=== PATIENT | male | born 1990 | race Caucasian/White ===

== ENCOUNTER 2023-10-01 08:52 | Day surgery (SDC) | payer BC ==
[~2023-10-01] VITALS: Ht 172.7 cm; Wt 84.1 kg
[~2023-10-01 08:52] MED LIST: AZEL205.5 NS; CETI5SOL3 PO; HYDR-3363 PO; LEXA5TAB13 PO
[2023-10-01] MEDS ORDERED: propofoL 200 MG/20 ML VIAL As Ordered ONE (10:20)
[2023-10-01] MEDS ORDERED: propofoL 500 MG/50 ML VIAL As Ordered ONE (10:25)
[2023-10-01] MEDS ORDERED: MIDAZOLAM INJ 2MG/2ML VIAL As Ordered ONE (10:30)
[2023-10-01 10:41] VITALS: TEMP 97.4
[2023-10-01 11:02] VITALS: BP 112/73; O2SAT 98
== END 2023-10-01 11:11 | disposition home or self-care (01) ==
LOC: M OPP 08:52
PROVIDERS: ATTEND Internal Medicine Gastroenterology
DX: K64.8 Other hemorrhoids (principal); K63.5 Polyp of colon; R10.32 Left lower quadrant pain; R19.4 Change in bowel habit; Z79.1 Long term (current) use of non-steroidal anti-inflammatories (NSAID); Z79.52 Long term (current) use of systemic steroids; Z79.899 Other long term (current) drug therapy; Z91.011 Allergy to milk products; Z91.013 Allergy to seafood
CPT/HCPCS: 45380; 45385; 88305; J2250